=== PATIENT | male | born 1975 | race Caucasian/White ===

== ENCOUNTER 2020-01-21 20:01 | Emergency (ER) | payer MEDICARE, MEDICAID ==
[~2020-01-21] VITALS: Ht 165.1 cm; Wt 79.0 kg
[2020-01-21 20:03] VITALS: BP 144/95
--- NOTE | 2020-01-21 20:12 | NUR ---
PT STATES HIS DAD HAS BEEN "MISSING" FOR 11 YEARS "AND WE JUST FOUND HIM".
--- NOTE | 2020-01-21 21:23 | NUR ---
URINE COLLECTED AND SENT
[2020-01-21 21:35] LABS: AMPHETAMINE SCREEN, URINE Negative (Negative); BARBITURATE SCREEN, URINE Negative (Negative); BENZODIAZEPINE SCREEN, URINE Negative (Negative); CANNABINOID SCREEN, URINE Negative (Negative); COCAINE SCREEN, URINE Negative (Negative); METHADONE SCREEN, URINE Negative (Negative); OPIATE SCREEN, URINE Negative (Negative)
== END 2020-01-21 21:55 | disposition home or self-care (01) ==
LOC: ED 21:29
DX: R00.2 Palpitations (principal); R42 Dizziness and giddiness; R94.31 Abnormal electrocardiogram [ECG] [EKG]
CPT/HCPCS: 80307; 93005; 99284